=== PATIENT | male | born 2000 | race African-American/Black ===

== ENCOUNTER 2023-01-20 22:52 | Emergency (ER) | payer SELFPAY ==
--- NOTE | ~2023-01-20 | CT_ITS ---
EXAMINATION: CT abdomen pelvis w con INDICATION: Diffuse abdominal pain TECHNIQUE: Computed tomographic images of the abdomen and pelvis were obtained after the administrati on of 100 cc of Omnipaque 350 intravenous contrast. The dose-length product (DLP) was 205.61 mGy-cm. Automated exposure control and iterative reconstruction technique were employed. COMPARISON: None available FINDINGS: The lung bases are clear. The heart size is normal. The liver, spleen, pancreas, gallbladde r, and adrenal glands are normal. The kidneys are unremarkable. No pathologically enlarged abdominal or pelvic lymph nodes are identified. No free intraperitoneal gas or evidence of bowel obstruction. T he appendix is normal. IMPRESSION: 1. No CT correlate for the patient's symptoms. Reviewed, dictated and finalized at location F. ICIDE CONTROL INSPECTOR
[2023-01-20 23:03] VITALS: BP 123/58; PULSE 98; RESP 20; TEMP 37.6; O2SAT 100
[2023-01-20 23:24] LABS: Alanine Aminotransferase 22 U/L (6-50); Albumin Level 4.7 g/dL (3.5-5.1); Alkaline Phosphatase 74 U/L (38-126); Anion Gap 11 mmol/L (8-16); Aspartate Amino Transferase 35 U/L (17-59); Bilirubin,Total 0.8 mg/dL (0.2-1.3); Blood Urea Nitrogen 16 mg/dL (9-20); Calcium 9.9 mg/dL (8.4-10.2); Carbon Dioxide 26 mmol/L (22-30); Chloride 101 mmol/L (98-107); Estimated CRCL calculation 109 ml/min; Estimated Glomerular Filt Rate > 60; Glucose 105 mg/dL (65-110); Lipase 52 U/L (23-300); Potassium 3.5 mmol/L (3.4-5.0); Sodium 138 mmol/L (137-145)
[2023-01-20 23:52] LABS: Basophils Percent Auto 0.4 % (0.2-1.2); Eosinophils Absolute Auto 0.1 K/mm3 (0-0.3); Eosinophils Percent Auto 1.6 % (0-4.4); Hematocrit 43.5 % (42.0-52.0); Hemoglobin 13.9 g/dL (14.0-18.0); Immature Granulocyte Absolute 0.02 K/mm3 (0.00-0.031); Immature Granulocyte Percent A 0.2 % (0-0.5); Lymphocytes Absolute Auto 0.87 K/mm3 (0.9-3.2); Lymphocytes Percent Auto 9.8 % (18.3-44.2); Mean Corpuscular Hemoglobin 27.3 pg (26-34); Mean Corpuscular Volume 85.3 fl (80-100); Mean Platelet Volume 12.8 fl (7.4-10.4); Monocytes Absolute Auto 0.3 K/mm3 (0.1-0.6); Neutrophils Absolute Auto 7.6 K/mm3 (1.3-6.7); Platelet Count Result 184 k/mm3 (150-375); Red Cell Distribution Width 12.7 % (11.5-14.5); White Blood Count 8.9 K/mm3 (4.5-10.0)
[2023-01-21 05:58] VITALS: BP 121/68; PULSE 63; RESP 15; O2SAT 99
[2023-01-21 06:22] LABS: Appearance Urine Cloudy (Clear); Bacteria Urine None Seen /hpf; Bilirubin Urine Negative (Negative); Blood Urine Negative (Negative); Color Urine Yellow (Yellow); Glucose Urine UA Negative (Negative); Ketones Urine Negative (Negative); Leukocyte Esterase Ur 1+ LEU/UL (Negative); Nitrate Urine Negative (Negative); Non Pathogenic Casts 0-2; Protein Urine Negative (Negative); RBC Urine 0-2 /hpf (0-2); Specific Grav Ur 1.022 (1.001-1.035); Squamous Epithelial Cell Urine None seen /hpf (Few); WBC Urine 21-50 /hpf; pH Urine 7.5 (5.0-9.0)
[2023-01-21 06:27] LABS: Add Urine Microscopic? YES
[2023-01-21] MEDS: ONDANSETRON INJ 4 MG/2 ML VIAL IV PUSH (07:23)
[2023-01-21] MEDS: KETOROLAC 30 MG/ML VIAL (*BKC) IV PUSH (07:23)
[2023-01-21] MEDS: SODIUM CHLORIDE 0.9% IV 1,000 ML 999 ML IV CONT (07:23)
--- NOTE | 2023-01-21 07:45 | ED.ABDPAIN ---
HPI - Abdominal Pain General Chief Complaint: Abdominal Pain Stated Complaint: upper abd pain Time Seen by Provider: 01/21/23 07:07 Source: patient and RN notes reviewed Mode of arrival: ambulatory Limitations: no limitations History of Present Illness HPI narrative: This is a 23 year old male who presents for evaluation of abdominal pain. He states he developed diffuse abdominal pain 1 hour after eating last night. He reports pain has been constant. He had an episode of nausea and vomiting at onset of pain. He denies diarrhea or urinary complaints. He denies penile discharge or testicular swelling. He tried pepto without relief. Pertinent past history: none Onset (ago): hour(s) (8) Pain Consistency: constant Location: diffuse Relieving factors: nothing Related Data Allergies Allergy/AdvReac Type Severity Reaction Status Date / Time No Known Allergies Allergy Verified 01/21/23 06:32 Review of Systems Constitutional: Constitutional: Denies weakness Cardiovascular: Cardiovascular: Denies syncope, Denies rapid heart rate, Denies irregular heart rhythm, Denies leg edema and Denies dyspnea Respiratory: Respiratory: Denies chest congestion, Denies hemoptysis, Denies excessive phlegm production and Denies dyspnea Gastrointestinal: Gastrointestinal: Reports abdominal pain, Denies hematochezia, Denies diarrhea, Reports nausea and Reports vomiting Genitourinary: Genitourinary: Denies hematuria, Denies dysuria, Denies penile discharge and Denies testicular pain Musculoskeletal: Musculoskeletal: Denies joint swelling, Denies loss of height and Denies muscle weakness Neurologic: Denies syncope, Denies focal weakness and Denies weakness PMFSH Past Medical History Medical History (Updated 01/21/23 @ 08:57 by Patricia Day MD) Hernia Surgical History Surgical History (Updated 01/21/23 @ 07:46 by Patricia Day MD) No pertinent past surgical history Social History Social History (Updated 01/21/23 @ 07:46 by Patricia Day MD) Smoking status: Never smoker Exam Const: General: no acute distress and alert Nutritional Appearance: well nourished Orientation/consciousness: patient oriented x3 Limitations: no limitations HENMT: Head: normal to inspection Eyes: EOM: EOMs intact bilaterally Chest: Chest palpation & inspection: normal inspection of the chest Resp: Effort & Inspection: normal respiratory effort Auscultation: clear to auscultation bilaterally Cardio: Rate: regular rate Rhythm: regular rhythm Heart sounds: no murmurs GI: GI Palp: Yes Soft to palpation, Yes Tenderness to palpation present (GI) (diffuse), Yes Guarding due to palpation present (GI) (voluntary), No Rigid due to palpation and No Hernia present Auscultation: normal bowel sounds : General: Yes bladder normal to palpation Back/Spine/Pelvis: Back: no CVA tenderness Skin: General skin exam: normal color Rashes: no rashes Neuro: General: patient oriented x3, moves all extremities and CN's II-XI intact bilaterally Extrem: General: normal to inspection Psych: Mental Status: mental status grossly normal Affect: normal affect Attitude: cooperative Course Reevaluation(s) Reevaluation #1: I Discussed with patient that Ct is unremarkable. He will be discharged with antibiotics given abnormal UA Date: 01/21/23 Time: 08:54 Vital Signs Vital signs: Vital Signs Temperature 99.6 F 01/20/23 23:03 Pulse Rate 98 01/20/23 23:03 Respiratory Rate 20 01/20/23 23:03 Blood Pressure 123/58 L 01/20/23 23:03 Pulse Oximetry 100 01/20/23 23:03 Oxygen Delivery Room Air 01/20/23 23:03 Temperature 99.6 F 01/20/23 23:03 Pulse Rate 71 01/21/23 08:59 Respiratory Rate 14 01/21/23 08:59 Blood Pressure 133/89 01/21/23 08:59 Pulse Oximetry 100 01/21/23 08:59 Oxygen Delivery Room Air 01/20/23 23:03 MDM - Abdominal Pain MDM Narrative Medical decision making narrative: labs ordered, CT ab
[2023-01-21 08:59] VITALS: BP 133/89; PULSE 71; RESP 14; O2SAT 100
== END 2023-01-21 09:10 | disposition home or self-care (01) ==
PROVIDERS: Emergency Medicine; Emergency Provider General Practice
DX: R10.9 Unspecified abdominal pain (principal); R82.998 Other abnormal findings in urine
CPT/HCPCS: 36415; 74177; 80053; 81001; 83690; 85025; 87086; 96361; 96374; 96375; 99284; J1885; J2405; J7030; Q9967

== ENCOUNTER 2023-01-22 09:14 | Emergency (ER) | payer SELFPAY ==
[2023-01-22] VITALS (12 sets, daily range): BP systolic 107–143; BP diastolic 62–83; PULSE 68–93; RESP 16–27; TEMP 36.2; O2SAT 99–100
[2023-01-22 09:37] LABS: Basophils Percent Auto 0.9 % (0.2-1.2); Eosinophils Absolute Auto 0.3 K/mm3 (0-0.3); Eosinophils Percent Auto 8.8 % (0-4.4); Hematocrit 46.4 % (42.0-52.0); Hemoglobin 14.4 g/dL (14.0-18.0); Lymphocytes Absolute Auto 1.49 K/mm3 (0.9-3.2); Mean Corpuscular Hemoglobin 27.3 pg (26-34); Mean Platelet Volume 12.6 fl (7.4-10.4); Monocytes Absolute Auto 0.4 K/mm3 (0.1-0.6); Neutrophils Absolute Auto 1.1 K/mm3 (1.3-6.7); Neutrophils Percent Auto 33.3 % (45.5-73.1); Platelet Count Result 198 k/mm3 (150-375); Red Blood Count 5.27 M/mm3 (4.6-6.20); White Blood Count 3.4 K/mm3 (4.5-10.0)
[2023-01-22 09:48] LABS: Alanine Aminotransferase 46 U/L (6-50); Albumin Level 4.7 g/dL (3.5-5.1); Alkaline Phosphatase 70 U/L (38-126); Anion Gap 13 mmol/L (8-16); Aspartate Amino Transferase 40 U/L (17-59); Bilirubin,Total 0.7 mg/dL (0.2-1.3); Blood Urea Nitrogen 18 mg/dL (9-20); Calcium 10.2 mg/dL (8.4-10.2); Carbon Dioxide 20 mmol/L (22-30); Chloride 105 mmol/L (98-107); Estimated CRCL calculation 120 ml/min; Estimated Glomerular Filt Rate > 60; Glucose 99 mg/dL (65-110); Lipase 55 U/L (23-300); Potassium 4.1 mmol/L (3.4-5.0); Sodium 138 mmol/L (137-145)
[2023-01-22 10:12] LABS: Appearance Urine Cloudy (Clear); Bacteria Urine None Seen /hpf; Bilirubin Urine Negative (Negative); Blood Urine Negative (Negative); Color Urine Yellow (Yellow); Glucose Urine UA Negative (Negative); Ketones Urine 1+ mg/dL (Negative); Leukocyte Esterase Ur Negative LEU/UL (Negative); Nitrate Urine Negative (Negative); Non Pathogenic Casts 0-2; Protein Urine Negative (Negative); RBC Urine 0-2 /hpf (0-2); Specific Grav Ur 1.014 (1.001-1.035); Squamous Epithelial Cell Urine None seen /hpf (Few); WBC Urine 0-5 /hpf; pH Urine 7.5 (5.0-9.0)
[2023-01-22 10:14] LABS: Add Urine Microscopic? YES
[2023-01-22] MEDS: SODIUM CHLORIDE 0.9% IV 1,000 ML 999 ML IV CONT (10:21)
--- NOTE | 2023-01-22 10:23 | ECG_ITS ---
Measurements Intervals [place] Rate: 64 P: 41 PA: 143 QRS: 80 QRSD: 84 T: 72 QT: 362 QTc: 375 Interpretive Statements SINUS RHYTHM ST ELEVATION IN ANTEROLAT/INF LEADS, PROBABLY EARLY REPOLARIZATION BASELINE ARTIFACT- I, II, III BORDERLINE ECG NO PREVIOUS ECG AVAILABLE FOR COMPARISON Electronically Signed On 01-22-2023 11:21:17 HVAC SERVICE MANAGER by Az Dumont D.O.
--- NOTE | 2023-01-22 10:24 | ED.ABDPAIN ---
HPI - Abdominal Pain General Chief Complaint: Abdominal Pain Stated Complaint: abd pain, kidney issues Time Seen by Provider: 01/22/23 09:45 History of Present Illness HPI narrative: 23-year-old male presents to the emergency department after having a syncopal episode. Patient was evaluated in the emergency department over the weekend and was diagnosed with urinary tract infection. Patient was unable to fill his prescription for his antibiotics over the weekend but was going to fill them this morning. While patient was in the car he had onset increased abdominal pain and had a syncopal episode. Patient had no loss of bowel or bladder control. Patient's family was driving and pulled over and called EMS. By the time EMS arrived on scene the patient was alert and oriented. Patient states that he was having some abdominal pain but the abdominal pain has since improved. Patient is resting comfortably at this time. Patient denies any prior history of syncope denies any history of coronary artery disease. Related Data Allergies Allergy/AdvReac Type Severity Reaction Status Date / Time No Known Allergies Allergy Verified 01/22/23 09:22 Review of Systems Review of Systems: All systems reviewed & are unremarkable except as noted in HPI and below PMFSH Past Medical History Medical History (Updated 01/22/23 @ 12:51 by Rashid Hsu MD) Hernia Surgical History Surgical History (Updated 01/21/23 @ 07:46 by Patricia Day MD) No pertinent past surgical history Social History Social History (Updated 01/21/23 @ 07:46 by Patricia Day MD) Smoking status: Never smoker Exam Narrative: APPEARANCE: Well appearing, no pain, no distress, well-nourished. HEAD: normocephalic, atraumatic. EYES: PERRLA/EOMI, conjunctivae clear. NOSE: Normal no drainage EARS:TMS clear with good light reflex. THROAT: Pharynx clear, no exudate. NECK: Supple. No adenopathy, no masses. RESPIRATORY: Airway patent, respirations nonlabored. Clear to auscultation bilaterally, no rales, rhonchi, wheezing. CARDIOVASCULAR: Regular rate and rhythm without murmurs rubs or gallops. ABDOMINAL: Soft, nontender, nondistended, normal bowel sounds MUSCULOSKELETAL: Moves all extremities. Strength/ROM intact, No edema, No calf tenderness. NEURO: Alert. Cranial nerves II through XII intact. Grossly intact SKIN: Warm, dry. Normal Color Course Course Emergency Course: 23-year-old male presenting to the emergency department for evaluation after having a syncopal episode. Patient does feel improved with treatment in the emergency department. Patient is afebrile with no leukocytosis and a stable hemoglobin. No significant abnormalities on his CMP and UA shows no evidence of infection. EKG showed normal sinus rhythm with no ectopy. Patient and pallor of the results of the workup and patient was comfortable plan was discharge and close follow-up with his primary care physician. Patient states he is going to get the antibiotics filled for his urinary tract infection that was diagnosed previously. Vital Signs Vital signs: Vital Signs Temperature 97.2 F L 01/22/23 09:19 Pulse Rate 88 01/22/23 09:19 Respiratory Rate 20 01/22/23 09:19 Blood Pressure 128/62 01/22/23 09:19 Pulse Oximetry 100 01/22/23 09:19 Oxygen Delivery Room Air 01/22/23 09:19 Temperature 97.2 F L 01/22/23 09:19 Pulse Rate 81 01/22/23 12:58 Respiratory Rate 18 01/22/23 12:58 Blood Pressure 127/79 01/22/23 12:04 Pulse Oximetry 99 01/22/23 12:58 Oxygen Delivery Room Air 01/22/23 09:19 MDM - Abdominal Pain Differential Diagnosis Differential diagnosis: Likely other Lab Data Attestation: I reviewed the patient's lab results. 01/22/23 09:32 01/22/23 09:32 Labs: Lab Results 01/22/23 01/22/23 Range/Units 09:32 10:01 WBC 3.4 L (4.5-10.0) K/mm3 RBC 5.27 (4.6-6.20) M/mm3 Hgb 14.4 (14.0-18.0
== END 2023-01-22 13:00 | disposition home or self-care (01) ==
PROVIDERS: Emergency Provider Emergency Medicine
DX: R55 Syncope and collapse (principal); R10.9 Unspecified abdominal pain; N39.0 Urinary tract infection, site not specified; R94.31 Abnormal electrocardiogram [ECG] [EKG]
CPT/HCPCS: 36415; 80053; 81001; 83690; 85025; 93005; 96360; 96361; 99283; J7030

== ENCOUNTER 2024-07-30 11:04 | Emergency (ER) | payer OTHER, SELFPAY ==
--- NOTE | ~2024-07-30 | XR_ITS ---
XR chest 2V Ordering provider: Glenny Winslow PA-C History: 24 years Male with . cough . Comparison: None. FINDINGS: MEDIASTINUM: The cardiac silhouette is not enlarged. LUNGS: No infiltrates, effusions or pneumothorax. OTHER: No free air under the diaphragm. IMPRESSION: No acute cardiopulmonary pathology. Reviewed, dictated and finalized at location A.
--- NOTE | ~2024-07-30 | CT_ITS ---
EXAMINATION: CT abdomen pelvis w con DATE: 07/30/2024 13:57 INDICATION: Diffuse abdominal pain and back pain TECHNIQUE: Computed tomography (CT) of the abdomen and pelvis was performed with 100 mL Omnipaque-350 intravenous contrast. Automated exposure control and iterative reconstruction technique were employe d. The dose-length product was 210.96 mGy-cm. COMPARISON: 01/21/2023 FINDINGS: Lung bases are clear. Heart size is normal. No pericardial or pleural effusion. Liver, gallbladder, s pleen, pancreas, bilateral adrenal glands and kidneys are normal. Normal appendix. No abnormal bowel wall thickening or obstruction. Bladder is normal. No free intraperitoneal gas or fluid. No pathologi josé miguel enlarged abdominal or pelvic lymphadenopathy. Abdominal aorta is normal in caliber with no diss ection. Normal variant circumaortic left renal veins. Bones are unremarkable. IMPRESSION: 1. No acute intra-abdominal/pelvic process. Reviewed, dictated and finalized at location A.
--- OUTSIDE RECORDS SUMMARY | 2024-07-30 11:07 | XMS_ITS | Clinical Summary ---
Author Organization [facility] Address [address] [place] [address] Care Team Providers Care Machine Lacer Name Role Phone Stone Galeas MD Primary Care Provider [phone] Source Comments [facility],non-owned Affiliates and Associated Physician Practices is amultiple site organization consisting of ambulatory clinics and hospital sitesin [place], [place], [place] and [place]. This disclosure is being madepursuant to the Care Everywhere program and may not contain all information available regarding this patient. Last updated 17.[facility] Allergies No known active allergies Medications * Be aware that medications may not be up to date on this document. Alwaysverify current medications with the patient. predniSONE (DELTASONE) 50 MG tablet Take 50 mg by mouth once daily 1 Active lidocaine (HM LIDOCAINE PATCH) 4 % patch Apply 1 (one) patch to skin once daily 30 patch 3 1 Active acetaminophen (TYLENOL) 500 MG tablet Take 1 (one) tablet by mouth every 4 hours as needed for Fever or Pain Maximum allowable Acetaminophen amount = 4 Grams (4000 mg) / 24 hours. 45 tablet 3 1 Active ibuprofen (MOTRIN) 600 MG tablet Take 1 (one) tablet by mouth 3 times daily 270 tablet 4 1 Active Active Problems Problem Noted Date Diagnosed Date Unilateral inguinal hernia without obstruction o r gangrene 08/09/2020 Immunizations Immunization Administration Dates Next Due DTaP VACCINE IM (6wk-6yrs) 09/09/2004,01/02/2002 ,2001 HEP A PEDS 2 DOSE 01/02/2014,12/08/2004 HEP B VACCINE, PED/ADOL 09/09/2004,01/02/2002, HIB-HAEMOPHILUS INFLUENZAE B CONJUGATE VACCINE 09/09/2004,01/02/2002,2001 Human Papilloma Virus Ninevalent Vaccine 016,03/29/2015 PERLITA VACCINE QUAD LAIV4 PF NASAL 11/24/2014,2013 MENINGOCOCCAL ACWY (MCV4P) VAC IM 11/20/2018, MMR 09/09/2004 MMR/VARICELLA 01/02/2014 PNEUMOCOCCAL PCV7 CONJ, PEDS 09/09/2004,01/03/20 02,2001 POLIO IPV 01/02/2014,09/09/2004,2001 TDAP (7yrs+) 01/18/2021 VARICELLA 09/09/2004 iNFLUENZA VACCINE, RECOM-ALFARO, QUADR. (FLUBLOCK QUADRIVALENT; 18Y+) (RIV4) 01/18/2021 Family History Relation Name Status Comments Maternal Aunt Other hypertension, dm, breast cancer - of heart dz in 60s Mother Other hypertension Social History Tobacco Use Types Packs/Day Years Used Date Smoking Tobacco: Never Smokeless Tobacco: Never Alcohol Use Standard Drinks/Week Comments Never 0 (1 standard drink = 0.6 oz pur e alcohol) PHQ-2 Answer Date Recorded PHQ2 TOTAL SCORE 0 08/09/2020 Sex and Gender Information Value Date Recorded Sex Assigned at Not on file Legal Sex Male 8:28 AM CDT Gender Identity Not on file Sexual Orientation Not on file Last Filed Vital Signs Vital Sign Reading Time Taken Comments Blood Pressure 100/70 01/18/2021 2:04 PM LIMOUSINE RENTAL CLERK Pulse 100 01/18/2021 2:04 PM LIMOUSINE RENTAL CLERK Temperature 36.9 C (98.4 F) 08/09/2020 3:44 PM CDT Respiratory Rate 20 01/18/2021 2:04 PM LIMOUSINE RENTAL CLERK Oxygen Saturation 99% 01/18/2021 2:04 PM LIMOUSINE RENTAL CLERK Inhaled Oxygen Concentration - - Weight 64.4 kg (142 lb) 01/18/2021 2:04 PM LIMOUSINE RENTAL CLERK Height 170.2 cm (5' 7) 01/18/2021 2:04 PM LIMOUSINE RENTAL CLERK Body Mass Index 22.24 01/18/2021 2:04 PM LIMOUSINE RENTAL CLERK Plan of Treatment Health Maintenance Due Date Last Done Comments HIV SCREENING 01/10/2016 MENINGOCOCCAL (Group B) VACC INE SHARED DECISION-MAKING (1 of 2 - Standard) 2017 HEPATITIS C SCREENING 01/05/2019 COVID-19 VACCINE (1 - 2023-2 5 season) 2023 DEPRESSION SCREENING 02/27/2024 INFLUENZA VACCINE (Season Ended) 2024 01/18/2021, 11/24/2014, 01/02/2014 DTAP/TDAP/TD VACCINES (5 - T d or Tdap) 01/18/2031 01/18/2021, 09/09/2004, 01/02/2002, Additional history exists ZOSTER VACCINE (1 of 2) 2051 HEPATITIS B VACCINE Completed 09/09/2004, 01/02/2002, 2001 HIB VACCINE Completed 09/09/2004, 08/2001, 2001 PNEUMOCOCCAL VACCINE Completed 09/09/2004, 01/02/2002, 2001 HPV VACCINE Completed 12/29/2015, 03/29/2015 MENINGOCOCCAL GROUPS A/C/Y/W VACCINE Completed 11/20/2018, 11/24/2014 Care Teams Machine Lacer Relationship Specialty Start Date End Date Stone Galeas MD [address] [place] [address] PCP - General 08/03/20
[2024-07-30 11:22] VITALS: BP 122/89; PULSE 75; RESP 16; TEMP 36.3; O2SAT 99
--- OUTSIDE RECORDS SUMMARY | 2024-07-30 12:21 | XMS_ITS | Clinical Summary ---
Author Organization [facility] Address [address] [place] [address] Care Team Providers Care Nutritional Chemist Name Role Phone Stone Galeas MD Primary Care Provider [phone] Source Comments [facility],non-owned Affiliates and Associated Physician Practices is amultiple site organization consisting of ambulatory clinics and hospital sitesin [place], [place], [place] and [place]. This disclosure is being madepursuant to the Care Everywhere program and may not contain all information available regarding this patient. Last updated 17.[facility] Allergies No known active allergies Medications [...] Comments Blood Pressure 100/70 01/18/2021 2:04 PM BUILDING CONSTRUCTION INSPECTOR Pulse 100 01/18/2021 2:04 PM BUILDING CONSTRUCTION INSPECTOR Temperature 36.9 C (98.4 F) 08/09/2020 3:44 PM CDT Respiratory Rate 20 01/18/2021 2:04 PM BUILDING CONSTRUCTION INSPECTOR Oxygen Saturation 99% 01/18/2021 2:04 PM BUILDING CONSTRUCTION INSPECTOR Inhaled Oxygen Concentration - - Weight 64.4 kg (142 lb) 01/18/2021 2:04 PM BUILDING CONSTRUCTION INSPECTOR Height 170.2 cm (5' 7) 01/18/2021 2:04 PM BUILDING CONSTRUCTION INSPECTOR Body Mass Index 22.24 01/18/2021 2:04 PM BUILDING CONSTRUCTION INSPECTOR Plan of Treatment Health Maintenance Due Date [...] A/C/Y/W VACCINE Completed 11/20/2018, 11/24/2014 Care Teams Nutritional Chemist Relationship Specialty Start Date End Date Stone Galeas MD [address] [place] [address] PCP - General 08/03/20
--- NOTE | 2024-07-30 12:29 | ED_ITS ---
HPI - Back Pain/Injury General Chief Complaint: Back Pain/Injury Stated Complaint: bilateral flank pain 1.5 days Time Seen by Provider: 07/30/24 11:35 History of Present Illness HPI Narrative: 24-year-old male with no significant past medical history presents to the emergency department for diffuse back pain and abdominal pain for the past 2 days. Patient states 2 days ago he developed flu-like symptoms consisting of nausea, vomiting, diarrhea, chills, sweats, congestion, cough. Since then he has had diffuse pain to his lower back and abdomen. States the pain is back is worse with standing for long periods of time. Denies injury trauma, saddle anesthesia, bowel or bladder incontinence or urinary retention, fever. Denies dysuria, hematuria, history of kidney stones. No prior abdominal surgeries. Related Data Allergies Allergy/AdvReac Type Severity Reaction Status Date / Time No Known Allergies Allergy Verified 07/30/24 11:30 Review of Systems 2 Review of Systems: All systems reviewed & are unremarkable except as noted in HPI and below PMFSH Past Medical History Medical History Hernia Surgical History Surgical History No pertinent past surgical history Social History Social History Smoking status: Never smoker Exam 2 Narrative: GENERAL: Well-appearing, well-nourished, and in no acute distress. HEAD: Normocephalic, atraumatic. EYES: PERRLA and EOMI. ENT: Nares clear, no rhinorrhea or epistaxis. Mucous membranes moist. NECK: Supple. CHEST: Clear to auscultation. No respiratory distress. HEART: Regular rate and rhythm. No murmur heard. Normal peripheral pulses. ABDOMEN: Normoactive bowel sounds. Abdomen soft with diffuse mild tenderness. No rebound or rigidity. BACK: Diffuse tenderness lumbar spine, paraspinous muscles and CVA regions bilaterally with no overlying skin changes. EXTREMITIES: Normal range of motion. No edema. SKIN: Warm, dry, no rash. NEURO: No focal deficits. Alert and oriented x3. No saddle anesthesia. BLE strength 5/5 Course Vital Signs Vital signs: Vital Signs Temperature 97.4 F L 07/30/24 11:22 Pulse Rate 75 07/30/24 11:22 Respiratory Rate 16 07/30/24 11:22 Blood Pressure 122/89 07/30/24 11:22 Pulse Oximetry 99 07/30/24 11:22 Oxygen Delivery Room Air 07/30/24 11:22 Temperature 97.4 F L 07/30/24 11:22 Pulse Rate 75 07/30/24 11:22 Respiratory Rate 16 07/30/24 11:22 Blood Pressure 122/89 07/30/24 11:22 Pulse Oximetry 99 07/30/24 11:22 Oxygen Delivery Room Air 07/30/24 11:22 MDM - Back Pain/Injury MDM Narrative Medical decision making narrative: 24-year-old male presents emergency department for 2 days of diffuse back pain and abdominal pain. States symptoms started with viral symptoms 2 days ago which consisted of N/V/D, body aches, chills, congestion. Triage vitals are stable. Patient is afebrile and nontoxic appearing. Exam is notable for the above. CBC with leukopenia of 2.9, normal hemoglobin RBCs, normal platelets. Chemistries with mildly elevated BUN of 23, otherwise unremarkable. Lipase normal. UA with 1+ ketones, no UTI. Viral swabs are negative. Chest x-ray shows no acute cardiopulmonary findings. CT abdomen pelvis shows no acute intra-abdominal or pelvic findings. Patient updated on results. She received IV fluids, Toradol, Pepcid and Zofran with significant improvement in symptoms. Suspect viral syndrome. Advised to have his labs redrawn by his PCP in couple weeks to ensure with leukopenia has improved, although this is likely secondary to current viral illness. Will send Tylenol, ibuprofen and Zofran to the pharmacy for symptomatic control. Discussed strict ED return precautions. He is agreeable with the plan verbalized understanding. Discharged in stable condition. Lab Data 07/30/24 12:45 07/30/24 12:45 Labs: Lab Results 07/30/24 Range/Units 12:45 WBC 2.9 L (4.5-10.0) K/mm3 RBC 5.32 (4.6-6.20) M/mm3 Hgb 14.4 (14.0-18.0) g/dL Hct 46.3 (42.0-52.0) % MCV 87.0 (80-100) fl MCH 27.1 (26-34) pg MCHC 31.1 L (32-36) g/dl RDW 12.8 (11.5-14.5) % Plt Count 189 (150-375) k/mm3 MPV 11.5 H (7.4-10.4) fl Immature Gran % (Auto) 0.3 (0-0.5) % Neut % (Auto) 16.9 L (45.5-73.1) % Lymph % (Auto) 46.6 H (18.3-44.2) % [place] % (Auto) 25.5 H (2.6-8.5) % Eos % (Auto) 9.7 H (0-4.4) % Baso % (Auto) 1.0 (0.2-1.2) % Lymph # (Auto) 1.35 (0.9-3.2) K/mm3 [place] # (Auto) 0.7 H (0.1-0.6) K/mm3 Eos # (Auto) 0.3 (0-0.3) K/mm3 Baso # (Auto) 0.0 (0.0-0.1) K/mm3 Abs Immat Gran (auto) 0.01 (0.00-0.031) K/mm3 Absolute Neuts (auto) 0.5 L (1.3-6.7) K/mm3 Absolute Nucleated RBC 0.000 (0.0-0.012) K/mm3 Nucleated RBC % 0.0 (0.0-0.2) % Sodium 139 (137-145) mmol/L Potassium 4.3 (3.4-5.0) mmol/L Chloride 103 (98-107) mmol/L Carbon Dioxide 28 (22-30) mmol/L Anion Gap 8 (4-12) mmol/L BUN 23 H (9-20) mg/dL Creatinine 1.02 (0.7-1.3) mg/dL Estim Creat Clear Calc 84 ml/min Estimated GFR > 60 (59 - ) Glucose 100 (65-110) mg/dL Calcium 9.6 (8.4-10.2) mg/dL Total Bilirubin 0.4 (0.2-1.3) mg/dL AST 26 (17-59) U/L ALT 14 (6-50) U/L Alkaline Phosphatase 51 (38-126) U/L Total Protein 8.2 (6.3-8.2) g/dL Albumin 4.7 (3.5-5.1) g/dL Lipase 63 (23-300) U/L Urine Color Yellow (Yellow) Urine Appearance Clear (Clear) Urine pH 6.0 (5.0-9.0) Ur Specific [place] 1.029 (1.001-1.035) Urine Protein Negative (Negative) mg/dL Urine Glucose (UA) Negative (Negative) mg/dL Urine Ketones 1+ H (Negative) mg/dL Ur Blood (Man) Negative (Negative) Urine Nitrate Negative (Negative) Urine Bilirubin Negative (Negative) Urine Urobilinogen 0.2 (<2.0) mg/dL Leukocyte Esterase Rfl Negative (Negative) SONIDO/UL Influenza A (RT-PCR) Negative (Negative) Influenza B (RT-PCR) Negative (Negative) RSV (RT-PCR) Negative (Negative) SARS-CoV-2 RNA (RT-PCR) Negative (Negative) Discharge Plan Discharge Clinical Impression: Acute viral syndrome, Leukopenia Patient Disposition: Home Condition: Stable Instructions: Antibiotic Form, Viral Syndrome (ED) Additional Instructions: Please drink plenty of fluids. Take Tylenol ibuprofen as needed for body aches and pain, ondansetron as needed for nausea vomiting. Follow-up with primary care provider referred you to. You may need your labs redrawn in the next few weeks to ensure your white blood cell count is increased as it was low today, however this is likely due to the viral illness. Return to the emergency department if you develop any new or worsening symptoms, you are unable to tolerate food or fluids, or other concerning symptoms. Patient Language: Stateless Prescriptions: New ibuprofen 800 mg tablet 800 mg PO TID PRN (Reason: pain) Qty: 20 0RF acetaminophen 500 mg capsule 500 mg PO Q6H PRN (Reason: pain) Qty: 14 0RF ondansetron 4 mg tablet,disintegrating 4 mg PO Q8H Qty: 14 0RF No Action ondansetron 4 mg tablet,disintegrating 4 mg PO Q6H PRN (Reason: nausea and vomiting) Qty: 14 0RF famotidine [Pepcid] 20 mg tablet 20 mg PO DAILY Qty: 14 0RF cephalexin 500 mg capsule 500 mg PO Q8H Qty: 21 0RF Follow-up/Referrals: Femi Anna MD [Physician] - UNKNOWN,DOCTOR [Primary Care Provider] -
[2024-07-30] MEDS: KETOROLAC 15 MG/ML VIAL (*BKC) IV PUSH (12:47)
[2024-07-30] MEDS: SODIUM CHLORIDE 0.9% IV 1,000 ML 999 ML IV CONT (12:47)
[2024-07-30] MEDS: FAMOTIDINE 20 MG/2 ML VIAL IV PUSH (12:48)
[2024-07-30] MEDS: ONDANSETRON INJ 4 MG/2 ML VIAL IV PUSH (12:48)
[2024-07-30 12:56] LABS: Eosinophils Absolute Auto 0.3 K/mm3 (0-0.3); Eosinophils Percent Auto 9.7 % (0-4.4); Hematocrit 46.3 % (42.0-52.0); Hemoglobin 14.4 g/dL (14.0-18.0); Immature Granulocyte Absolute 0.01 K/mm3 (0.00-0.031); Immature Granulocyte Percent A 0.3 % (0-0.5); Lymphocytes Absolute Auto 1.35 K/mm3 (0.9-3.2); Lymphocytes Percent Auto 46.6 % (18.3-44.2); Mean Corpuscular HGB Conc 31.1 g/dl (32-36); Mean Corpuscular Hemoglobin 27.1 pg (26-34); Mean Platelet Volume 11.5 fl (7.4-10.4); Monocytes Absolute Auto 0.7 K/mm3 (0.1-0.6); Monocytes Percent Auto 25.5 % (2.6-8.5); Neutrophils Absolute Auto 0.5 K/mm3 (1.3-6.7); Neutrophils Percent Auto 16.9 % (45.5-73.1); Platelet Count Result 189 k/mm3 (150-375); Red Blood Count 5.32 M/mm3 (4.6-6.20); Red Cell Distribution Width 12.8 % (11.5-14.5); White Blood Count 2.9 K/mm3 (4.5-10.0)
[2024-07-30 12:58] LABS: Add Urine Microscopic? NO; Appearance Urine Clear (Clear); Bilirubin Urine Negative (Negative); Blood Urine Negative (Negative); Color Urine Yellow (Yellow); Glucose Urine UA Negative (Negative); Ketones Urine 1+ mg/dL (Negative); Leukocyte Esterase Ur Negative LEU/UL (Negative); Nitrate Urine Negative (Negative); Protein Urine Negative (Negative); Specific Grav Ur 1.029 (1.001-1.035); Urobilinogen Urine 0.2 mg/dL (<2.0)
[2024-07-30 13:06] LABS: Alanine Aminotransferase 14 U/L (6-50); Albumin Level 4.7 g/dL (3.5-5.1); Alkaline Phosphatase 51 U/L (38-126); Anion Gap 8 mmol/L (4-12); Aspartate Amino Transferase 26 U/L (17-59); Bilirubin,Total 0.4 mg/dL (0.2-1.3); Blood Urea Nitrogen 23 mg/dL (9-20); Calcium 9.6 mg/dL (8.4-10.2); Carbon Dioxide 28 mmol/L (22-30); Chloride 103 mmol/L (98-107); Estimated CRCL calculation 84 ml/min; Estimated Glomerular Filt Rate > 60; Glucose 100 mg/dL (65-110); Lipase 63 U/L (23-300); Potassium 4.3 mmol/L (3.4-5.0); Sodium 139 mmol/L (137-145); Total Protein 8.2 g/dL (6.3-8.2)
[2024-07-30 13:41] LABS: Influenza A QL RT-PCR Negative (Negative); Influenza B QL RT-PCR Negative (Negative); RSV RNA, RT-PCR Negative (Negative); SARS-CoV-2 RNA PCR Negative (Negative)
[2024-07-30 16:02] VITALS: BP 110/65; PULSE 62; RESP 16; O2SAT 97
== END 2024-07-30 16:03 | disposition home or self-care (01) ==
PROVIDERS: Emergency Provider Physician Assistant
DX: B34.9 Viral infection, unspecified (principal); D72.819 Decreased white blood cell count, unspecified; Z20.822 Contact with and (suspected) exposure to COVID-19
CPT/HCPCS: 36415; 71046; 74177; 80053; 81003; 83690; 85025; 87637; 96361; 96374; 96375; 99284; J1885; J2405; J7030; Q9967

== ENCOUNTER 2024-12-29 05:37 | Emergency (ER) | payer OTHER, SELFPAY ==
[2024-12-29] VITALS (8 sets, daily range): BP systolic 114–129; BP diastolic 75–89; PULSE 66–87; RESP 17–20; TEMP 36.6; O2SAT 97–100
--- NOTE | ~2024-12-29 | CT_ITS ---
CT HEAD NON-CONTRAST Clinical History: syncope Comparison: None Technique: Unenhanced axial images skull base to vertex Coronal, sagittal reformats CT images acquired with automatic exposure control for dose reduction DLP: 681 mGy-cm Findings: Sulci, ventricles: Unremarkable. No intracerebral hemorrhage. No evidence acute territorial infarct. No mass effect, midline shift. Bony calvarium intact. Visualized paranasal sinuses: Clear. Mastoid air cells: Clear. IMPRESSION: 1. No acute intracranial findings. Reviewed, dictated and finalized at location R. GROOMER
--- NOTE | ~2024-12-29 | XR_ITS ---
Examination: XR chest 1V Clinical History: syncope Comparison: 07/30/2024 Technique: Portable AP Findings: Heart size normal. Lungs clear. No acute bony abnormality. IMPRESSION: 1. No acute cardiopulmonary findings given portable technique. Reviewed, dictated and finalized at location R. NESS OBJECTS CONSULTANT
--- NOTE | 2024-12-29 05:51 | ECG_ITS ---
Test Date: 2024-12-29 06:13:27 Measurements Intervals [place] Rate: 71 P: 11 NE: 139 QRS: 76 QRSD: 80 T: 66 QT: 342 QTc: 373 Interpretive Statements SINUS RHYTHM EARLY REPOLARIZATION [ST ELEVATION WITH NORMALLY INFLECTED T-WAVE] No previous ECG available for comparison Electronically Signed On 12-29-2024 09:39:54 BARREL COOPER by Main Sal M.D.
[2024-12-29 06:05] LABS: Hematocrit 40.5 % (42.0-52.0); Hemoglobin 12.5 g/dL (14.0-18.0); Immature Granulocyte Percent A 0.3 % (0-0.5); Lymphocytes Absolute Auto 1.01 K/mm3 (0.9-3.2); Mean Corpuscular HGB Conc 30.9 g/dl (32-36); Mean Corpuscular Hemoglobin 26.9 pg (26-34); Mean Corpuscular Volume 87.1 fl (80-100); Nucleated Red Blood Cells Absolute Auto 0.000 K/mm3 (0.0-0.012); Nucleated Red Blood Cells Perc 0.0 % (0.0-0.2); Platelet Count Result 187 k/mm3 (150-375); Red Blood Count 4.65 M/mm3 (4.6-6.20); White Blood Count 3.8 K/mm3 (4.5-10.0)
[2024-12-29 06:10] LABS: Fractional Inspired Oxygen 21 %; HCO3 VBG 24.0 mEq/l (24.0-30.0); PCO2 VBG 46.8 mmHg (42.0-48.0); pH VBG 7.328 (7.300-7.400)
[2024-12-29] MEDS: LACTATED RINGERS 1,000 ML 999 ML IV CONT (06:17)
[2024-12-29 06:21] LABS: Alanine Aminotransferase 15 U/L (6-50); Albumin Level 4.2 g/dL (3.5-5.1); Alkaline Phosphatase 55 U/L (38-126); Anion Gap 7 mmol/L (4-12); Aspartate Amino Transferase 26 U/L (17-59); Bilirubin,Total 0.4 mg/dL (0.2-1.3); Blood Urea Nitrogen 22 mg/dL (9-20); Calcium 8.9 mg/dL (8.4-10.2); Carbon Dioxide 26 mmol/L (22-30); Chloride 100 mmol/L (98-107); Estimated CRCL calculation 103 ml/min; Estimated Glomerular Filt Rate > 60; Glucose 191 mg/dL (65-110); Potassium 4.4 mmol/L (3.4-5.0); Sodium 133 mmol/L (137-145); Total Protein 6.9 g/dL (6.3-8.2)
[2024-12-29 06:27] LABS: PO2 VBG < 27.0 mmHg (35.0-45.0)
[2024-12-29 06:28] LABS: Troponin I 0.014 ng/mL (0.000-0.034)
--- NOTE | 2024-12-29 06:34 | PC.NURSE ---
Per pt girlfriend- pt was having an increasingly painful headache. Pt then started shaking and began hyperventilating. Pt then stopped breathing for a couple seconds. Pt girlfriend then states she started compressions and rescue breaths for a few seconds. Then compressions were stopped and EMS arrived and stated that pt was shaking and was only responsive to painful stimuli. Blood Sugar was checked by EMS and result was low. D10 was stated and pt received 100 mL and became A & O x4 in route. Pt reports the same thing happened a year ago when he was having bad abd pain. Pt in room only c/o headache.
[2024-12-29 06:57] LABS: Cannabinoid Screen Urine Positive (Negative)
--- NOTE | 2024-12-29 07:13 | ED.SEIZURE ---
HPI - Seizure General Chief Complaint: Seizure Stated Complaint: headache Time Seen by Provider: 12/29/24 06:59 History of Present Illness HPI Narrative: Per girlfriend, patient was reporting headache (had diagnosed migraines) and took a sumatriptan this morning, it didn't help, then he started complaining of increasing pain, she tried giving him some cold water, then states he started having seizure-like activity; he seemed to be shaking or trembling all over and was not responding, this episode lasted for quite a while, she wanted to call EMS, patient at 1st did not want her to call EMS but when the episodes did not stop, she called EMS. Had a similar episode a while back when he had severe abdominal pain, then started having shakes, presumed diagnosis is that severe pain causes him to have these seizure-like episodes. Related Data Allergies Allergy/AdvReac Type Severity Reaction Status Date / Time No Known Allergies Allergy Verified 12/29/24 05:49 Review of Systems Review of Systems: All systems reviewed & are unremarkable except as noted in HPI and below PMFSH Past Medical History Medical History (Updated 12/29/24 @ 07:40 by Marianne Mario MD) Hernia inquinal Surgical History Surgical History No pertinent past surgical history Family History Family History Mother Hypertension Father Hypertension Social History Social History Smoking status: Never smoker Alcohol intake: never Substance use: never Do You Feel Safe in your Home?: Yes Lack of Transportation: YES Lack of Food: Never True Current Housing: I Have Housing Concerned About Future Housing: No Difficulty Paying Gas/Electric Bills: No Difficulty Paying for Meds: YES Education: High School Diploma/GED Difficulty w/ Childcare or Family Care: No Living arrangements: with family Spiritual care concerns: No Agree to blood products: Yes Exam Narrative: EXAMINATION OF ORGAN SYSTEMS/BODY AREAS: Constitutional: Vital signs per nursing GENERAL: [No acute distress, non-toxic appearing.] HEAD: Normal with no signs of head trauma. EYES: EOMI, conjunctiva normal, PERRL ENT: Hearing grossly intact LUNGS: Nonlabored breathing. HEART: [Regular rate and rhythm] ABD: [Soft], [nontender to palpation] EXT: Normal range of motion SKIN: [No rashes or lesions.] NEURO: [Alert and oriented x 3. No gross focal sensory or strength deficits.] Speaking clear speech, ambulating with normal steady PSYCH: Normal affect Course Vital Signs Vital signs: Vital Signs Temperature 97.9 F 12/29/24 05:36 Pulse Rate 68 12/29/24 05:36 Respiratory Rate 17 12/29/24 05:36 Blood Pressure 123/78 12/29/24 05:36 Pulse Oximetry 100 12/29/24 05:36 Oxygen Delivery Room Air 12/29/24 05:36 Temperature 97.9 F 12/29/24 05:53 Pulse Rate 72 12/29/24 08:42 Respiratory Rate 17 12/29/24 08:42 Blood Pressure 114/80 12/29/24 08:42 Pulse Oximetry 100 12/29/24 08:42 Oxygen Delivery Room Air 12/29/24 06:23 MDM - Seizure MDM Narrative Medical decision making narrative: 24-year-old male presents with seizure-like episode, started after having a bad migraine for last few days, which did not get better after taking sumatriptan at home. Is awaiting follow-up with a neurologist, has MRI scheduled outpatient also. Blood sugar apparently at home tested by EMS was apparently undetectable, though he has no history of diabetes and he has been eating normally at home including last night. Has been stable here, well-appearing in no distress, though he does state that he still has a bit a headache, so he is treated for this with improvement. I did call and speak with our neurologist on-call, who recommended obtaining an EEG today if possible so that he can follow up with him outpatient. Does feels patient can likely be discharged and I agree, discussed with patient and girlfriend at bedside who are also in agreement with this plan with strict return precautions. Repeat blood sugar after 2 hours here remained stable, we did speak with EEG services and they will arrange to have an EEG for him done today outpatient. Strict return precautions discussed and patient and girlfriend agreeable. Lab Data 12/29/24 05:57 12/29/24 05:57 Labs: Lab Results 12/29/24 12/29/24 12/29/24 Range/Units 05:40 05:57 05:57 WBC 3.8 L (4.5-10.0) K/mm3 RBC 4.65 (4.6-6.20) M/mm3 Hgb 12.5 L (14.0-18.0) g/dL Hct 40.5 L (42.0-52.0) % MCV 87.1 (80-100) fl MCH 26.9 (26-34) pg MCHC 30.9 L (32-36) g/dl RDW 12.7 (11.5-14.5) % Plt Count 187 (150-375) k/mm3 MPV 12.1 H (7.4-10.4) fl Immature Gran % (Auto) 0.3 (0-0.5) % Neut % (Auto) 50.3 (45.5-73.1) % Lymph % (Auto) 26.7 (18.3-44.2) % [place] % (Auto) 9.5 H (2.6-8.5) % Eos % (Auto) 12.4 H (0-4.4) % Baso % (Auto) 0.8 (0.2-1.2) % Lymph # (Auto) 1.01 (0.9-3.2) K/mm3 [place] # (Auto) 0.4 (0.1-0.6) K/mm3 Eos # (Auto) 0.5 H (0-0.3) K/mm3 Baso # (Auto) 0.0 (0.0-0.1) K/mm3 Abs Immat Gran (auto) 0.01 (0.00-0.031) K/mm3 Absolute Neuts (auto) 1.9 (1.3-6.7) K/mm3 Absolute Nucleated RBC 0.000 (0.0-0.012) K/mm3 Nucleated RBC % 0.0 (0.0-0.2) % Sodium 133 L (137-145) mmol/L Potassium 4.4 (3.4-5.0) mmol/L Chloride 100 (98-107) mmol/L Carbon Dioxide 26 (22-30) mmol/L Anion Gap 7 (4-12) mmol/L BUN 22 H (9-20) mg/dL Creatinine 0.95 (0.7-1.3) mg/dL Estim Creat Clear Calc 103 ml/min Estimated GFR > 60 (59 - ) Glucose 191 H (65-110) mg/dL POC Capillary Glucose 236 H (65-105) mg/dl Lactic Acid 2.3 H (0.7-2.0) mmol/L Calcium 8.9 (8.4-10.2) mg/dL Total Bilirubin 0.4 (0.2-1.3) mg/dL AST 26 (17-59) U/L ALT 15 (6-50) U/L Alkaline Phosphatase 55 (38-126) U/L Troponin I 0.014 Cancelled (0.000-0.034) ng/mL Total Protein 6.9 (6.3-8.2) g/dL Albumin 4.2 (3.5-5.1) g/dL Urine Opiates Screen (Negative) Urine Methadone Screen (Negative) Ur Barbiturates Screen (Negative) Ur Phencyclidine Scrn (Negative) Ur Amphetamine Screen (Negative) U Benzodiazepines Scrn (Negative) Urine Cocaine Screen (Negative) U Cannabinoids Screen (Negative) Ethyl Alcohol < 10 (<10) mg/dL 12/29/24 12/29/24 12/29/24 Range/Units 06:28 07:43 08:29 WBC (4.5-10.0) K/mm3 RBC (4.6-6.20) M/mm3 Hgb (14.0-18.0) g/dL Hct (42.0-52.0) % MCV (80-100) fl MCH (26-34) pg MCHC (32-36) g/dl RDW (11.5-14.5) % Plt Count (150-375) k/mm3 MPV (7.4-10.4) fl Immature Gran % (Auto) (0-0.5) % Neut % (Auto) (45.5-73.1) % Lymph % (Auto) (18.3-44.2) % [place] % (Auto) (2.6-8.5) % Eos % (Auto) (0-4.4) % Baso % (Auto) (0.2-1.2) % Lymph # (Auto) (0.9-3.2) K/mm3 [place] # (Auto) (0.1-0.6) K/mm3 Eos # (Auto) (0-0.3) K/mm3 Baso # (Auto) (0.0-0.1) K/mm3 Abs Immat Gran (auto) (0.00-0.031) K/mm3 Absolute Neuts (auto) (1.3-6.7) K/mm3 Absolute Nucleated RBC (0.0-0.012) K/mm3 Nucleated RBC % (0.0-0.2) % Sodium (137-145) mmol/L Potassium (3.4-5.0) mmol/L Chloride (98-107) mmol/L Carbon Dioxide (22-30) mmol/L Anion Gap (4-12) mmol/L BUN (9-20) mg/dL Creatinine (0.7-1.3) mg/dL Estim Creat Clear Calc ml/min Estimated GFR (59 - ) Glucose (65-110) mg/dL POC Capillary Glucose 120 H (65-105) mg/dl Lactic Acid 1.2 (0.7-2.0) mmol/L Calcium (8.4-10.2) mg/dL Total Bilirubin (0.2-1.3) mg/dL AST (17-59) U/L ALT (6-50) U/L Alkaline Phosphatase (38-126) U/L Troponin I (0.000-0.034) ng/mL Total Protein (6.3-8.2) g/dL Albumin (3.5-5.1) g/dL Urine Opiates Screen Negative (Negative) Urine Methadone Screen Negative (Negative) Ur Barbiturates Screen Negative (Negative) Ur Phencyclidine Scrn Negative (Negative) Ur Amphetamine Screen Negative (Negative) U Benzodiazepines Scrn Negative (Negative) Urine Cocaine Screen Negative (Negative) U Cannabinoids Screen Positive A (Negative) Ethyl Alcohol (<10) mg/dL ABG Data ABG results: 12/29/24 05:57 VBG pH 7.328 VBG pCO2 46.8 VBG pO2 < 27.0 L VBG HCO3 24.0 O2 Delivery Device Room air O2 Liters/Min Not Reportable FiO2 21 Discharge Plan Discharge Clinical Impression: Seizure due to hypoglycemia Patient Disposition: Home Condition: Stable Instructions: Non-diabetic Hypoglycemia (ED), Generalized Tonic Clonic Seizures (ED) Additional Instructions: Call Elidia at Dr Valera's office to set up EEG testing today. ([phone]) Order placed as an outpatient and results go to Dr Valera (he is the neurologist). You will need to [place] at front entrance of [facility] (entrance 1). First door to the left as soon as you walk into the front doors. Please follow up with your PCP and Dr Valera the neurologist (brain specialist). Make sure you are eating and drinking enough. If your symptoms return or worsen, please return to the emergency room. Patient Language: Greenlandic Prescriptions: No Action ondansetron 4 mg tablet,disintegrating 4 mg PO Q8H PRN (Reason: nausea and vomiting) Qty: 14 1RF sumatriptan succinate 50 mg tablet See Rx Instructions PO .COMPLEX Qty: 30 1RF Rx Instructions: take 1 tab at onset of headache; if no relief may repeat 1 tab after at least 2 hrs; max = 4 tabs/24 hr PO Debrox 6.5 % drops 10 drp LEFT EAR Q12H PRN (Reason: ear wax) 4 Days Qty: 15 1RF Follow-up/Referrals: Matias Valera MD [Physician, Neurology] - 2 Days Maggie Burrell APRN [Primary Care Provider, Internal Medicine] - 2 Days
--- NOTE | 2024-12-29 07:44 | PC.NURSE ---
Pt blood glucose 120 at this time.
[2024-12-29] MEDS: KETOROLAC 15 MG/ML VIAL (*BKC) IV PUSH (08:24)
[2024-12-29] MEDS: dexAMETHasone SOD PHOS INJ 10 MG/ML 1 ML VIAL IV PUSH (08:24)
[2024-12-29] MEDS: METOCLOPRAMIDE HCL INJ 10 MG/2 ML VIAL IV PUSH (08:25)
== END 2024-12-29 08:43 | disposition home or self-care (01) ==
PROVIDERS: Student in an Organized Health Care Education/Training Program; Emergency Provider Emergency Medicine; PCP Nurse Practitioner Family
DX: G40.89 Other seizures (principal); E16.2 Hypoglycemia, unspecified
CPT/HCPCS: 36415; 70450; 71045; 80053; 80307; 82077; 82803; 82948; 83605; 84484; 85025; 93005; 96361; 96374; 96375; 99284; J1100; J1200; J1885; J2765; J7120

== ENCOUNTER 2024-12-29 10:03 | Outpatient (CLI) | payer OTHER, SELFPAY ==
--- OUTSIDE RECORDS SUMMARY | 2024-12-29 10:58 | XMS_ITS | Clinical Summary ---
Author Organization [facility] Address [address] [place] [address] Care Team Providers Care Salesperson Jewelry Name Role Phone Stone Galeas MD Primary Care Provider [phone] Source Comments [facility],non-owned Affiliates and Associated Physician Practices is amultiple site organization consisting of ambulatory clinics and hospital sitesin [place], [place], [place] and [place]. This disclosure is being madepursuant to the Care Everywhere program and may not contain all information available regarding this patient. Last updated 17.[facility] Allergies No known active allergies Medications * [...] Comments Blood Pressure 100/70 01/18/2021 2:04 PM CERTIFIED PROSTHETIST VICE PRESIDENT Pulse 100 01/18/2021 2:04 PM CERTIFIED PROSTHETIST VICE PRESIDENT Temperature 36.9 C (98.4 F) 08/09/2020 3:44 PM CDT Respiratory Rate 20 01/18/2021 2:04 PM CERTIFIED PROSTHETIST VICE PRESIDENT Oxygen Saturation 99% 01/18/2021 2:04 PM CERTIFIED PROSTHETIST VICE PRESIDENT Inhaled Oxygen Concentration - - Weight 64.4 kg (142 lb) 01/18/2021 2:04 PM CERTIFIED PROSTHETIST VICE PRESIDENT Height 170.2 cm (5' 7) 01/18/2021 2:04 PM CERTIFIED PROSTHETIST VICE PRESIDENT Body Mass Index 22.24 01/18/2021 2:04 PM CERTIFIED PROSTHETIST VICE PRESIDENT Plan of Treatment Health Maintenance Due Date Last Done Comments HIV SCREENING 01/10/2016 MENINGOCOCCAL (Group B) VACC INE SHARED DECISION-MAKING (1 of 2 - Standard) 2017 HEPATITIS C SCREENING 01/05/2019 DEPRESSION SCREENING 02/27/2024 COVID-19 VACCINE ( - 2023-2 5 season) 2024 INFLUENZA VACCINE (#1) 2024 , 11/24/2014, 01/02/2014 DTAP/TDAP/TD VACCINES (5 - T d or Tdap) 01/18/2031 01/18/2021, 09/09/2004, 01/02/2002, Additional history exists ZOSTER VACCINE (1 of 2) 2051 HEPATITIS B VACCINE Completed 09/09/2004, 01/02/2002, 2001 HIB VACCINE Completed 09/09/2004, 08/2001, 2001 PNEUMOCOCCAL VACCINE Completed 09/09/2004, 01/02/2002, 2001 HPV VACCINE Completed 12/29/2015, 03/29/2015 MENINGOCOCCAL GROUPS A/C/Y/W VACCINE Completed 11/20/2018, 11/24/2014 Care Teams Salesperson Jewelry Relationship Specialty Start Date End Date Stone Galeas MD [address] [place] [address] PCP - General 08/03/20
--- NOTE | 2024-12-30 11:36 | P.NEURO_ITS ---
Neurology EEG Report General Information Date of Study: 12/29/24 TEST eeg DIAGNOSIS Unspecified convulsions CONDITION OF RECORDING awake, drowsy and asleep EEG NUMBER [id number] CLINICAL HISTORY 24 years old male who woke up at 5:30 a.m. on 12/29 with a painful headaches. Patient has started getting B's headaches at the beginning of 2024 and takes a non abutting medication for it. When he took his medication, it made it worse. His girlfriend stated that he was in so much pain he went into shock and became unresponsive for 3 to 5 minutes. When EMS arrived, patient was only shaking his head yes and no to the questions, but he Does not remember this. patient blood sugar was at 22. Girlfriend said he had eaten dinner and then at some [employer] noodles before going to bed. Patient stated that he still has headache in the back of his head, the lights are making it worse, he has exhausted and his stomach hurts. Patient blood sugar was low a year ago after abdominal pain where he became unresponsive as well. 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 EEG DESCRIPTION Background rhythm consists of low-voltage 15 to 18 hertz per 2nd beta admixed with intermittent 2 to 3 hertz per 2nd delta activity hyperventilation produced normal and symmetrical buildup. Bilateral symmetrical sleep activity is noted with symmetrical sleep spindles and K complexes. Photic stimulation produced normal driving. Hyperventilation produced normal and symmetrical buildup. IMPRESSION Only mildly abnormal record due to the presence of intermittent delta activity during wakefulness. There is no evidence of any paroxysmal activity but clinical correlation recommended findings could be suggestive of a postictal state or focal structural lesion.
== END 2024-12-29 10:04 | disposition home or self-care (01) ==
LOC: ANHNEURO 10:04
PROVIDERS: PCP Nurse Practitioner Family; Visit Provider Psychiatry & Neurology Neurology
DX: R56.9 Unspecified convulsions (principal)
CPT/HCPCS: 95816

== ENCOUNTER 2025-01-21 12:08 | Outpatient (CLI) | payer OTHER, SELFPAY ==
--- NOTE | ~2025-01-21 | MR_ITS ---
MR sinus wo con 01/21/2025 13:25 Indication: Epistaxis Procedure: Multisequence/multiplanar MRI examination of the sinuses Comparison: CT dated 12/29/2024 Findings: Paranasal sinuses are unremarkable without significant mucosal thickening. No abnormal fluid. No significant nasal septal deviation. There are bilateral marilynn bullosa. Structures of the posterior fossa are unremarkable. Orbits are symmetric without disconjugate gaze. Flow voids in the visualized intracranial vessels are normal. No ventriculomegaly or midline shift. Impression: 1: No significant sinus disease. Reviewed, dictated and finalized at location I. CIATE COUNSEL Impression: 1: No significant sinus disease.
--- NOTE | ~2025-01-21 | MR_ITS ---
EXAMINATION: MR brain/brain stem wo con DATE: 01/23/2025 14:59 COUTURE DRESSMAKER INDICATION: Headache TECHNIQUE: Magnetic resonance imaging (MRI) of the brain and brainstem was performed without intravenous contrast. Sequences included sagittal and axial T1-weighted SE, axial diffusion-weighted FS SE, axial T2*-weighted GRE, axial T2-weighted FLAIR Propeller, and axial T2-weighted Propeller. Apparent diffusion coefficient (ADC) maps were created. COMPARISON: CT dated 12/29/2024 FINDINGS: The brain volume and ventricular system are within normal limits. The brain parenchymal signal intensity pattern and champagne/white matter is normal and there is no evidence of hemorrhage, space occupying masses or infarctions. The flow signal voids of the major arterial structures about the [place] and within the major dural venous sinuses appear grossly unremarkable and patent. The seventh and eighth cranial nerve complexes are normal. The mid sagittal image demonstrates a normal craniovertebral junction and corpus callosum. The paranasal sinuses are grossly unremarkable. IMPRESSION: 1: Unremarkable MRI of the brain. Reviewed, dictated and finalized at location I. URE DRESSMAKER
--- OUTSIDE RECORDS SUMMARY | 2025-01-21 12:32 | XMS_ITS | Clinical Summary ---
Author Organization [facility] Address [address] [place] [address] Care Team Providers Care Plant Buyer Name Role Phone Stone Galeas MD Primary Care Provider [phone] Source Comments [facility],non-owned Affiliates and Associated Physician Practices is amultiple site organization consisting of ambulatory clinics and hospital sitesin [place], [place], [place] and [place]. This disclosure is being madepursuant to the Care Everywhere program and may not contain all information available regarding this patient. Last updated 17.[facility] Allergies No known active allergies Medications * [...] Comments Blood Pressure 100/70 01/18/2021 2:04 PM SENIOR DESIGNER Pulse 100 01/18/2021 2:04 PM SENIOR DESIGNER Temperature 36.9 C (98.4 F) 08/09/2020 3:44 PM CDT Respiratory Rate 20 01/18/2021 2:04 PM SENIOR DESIGNER Oxygen Saturation 99% 01/18/2021 2:04 PM SENIOR DESIGNER Inhaled Oxygen Concentration - - Weight 64.4 kg (142 lb) 01/18/2021 2:04 PM SENIOR DESIGNER Height 170.2 cm (5' 7) 01/18/2021 2:04 PM SENIOR DESIGNER Body Mass Index 22.24 01/18/2021 2:04 PM SENIOR DESIGNER Plan of Treatment Health Maintenance Due Date Last Done Comments HIV SCREENING 01/10/2016 HEPATITIS C SCREENING 01/05/2019 DEPRESSION SCREENING 02/27/2024 COVID-19 VACCINE ( season) 2024 INFLUENZA VACCINE (#1) 2024 , 11/24/2014, 01/02/2014 DTAP/TDAP/TD VACCINES (5 - Td or Tdap) 01/18/2031 01/18/2021, 09/09/2004, 01/02/2002, Additional history exists ZOSTER VACCINE (1 of 2) 2051 HEPATITIS B VACCINE Completed 09/09/2004, 01/02/2002, 2001 HIB VACCINE Completed 09/09/2004, 08/2001, 2001 PNEUMOCOCCAL VACCINE Completed 09/09/2004, 01/02/2002, 2001 HPV VACCINE Completed 12/29/2015, 03/29/2015 MENINGOCOCCAL GROUPS A/C/Y/W VACCINE Completed 11/20/2018, 11/24/2014 MENINGOCOCCAL (Group B) VACCINE SHARED DECISION-MAKING Aged Out No longer eligible based on patient's age to complete this topic Care Teams Plant Buyer Relationship Specialty Start Date End Date Stone Galeas MD [address] [place] [address] PCP - General 08/03/20
== END 2025-01-21 12:09 | disposition home or self-care (01) ==
PROVIDERS: PCP Nurse Practitioner Family; Visit Provider Nurse Practitioner Family
DX: R51.9 Headache, unspecified (principal); G89.29 Other chronic pain; R04.0 Epistaxis; K40.90 Unilateral inguinal hernia, without obstruction or gangrene, not specified as recurrent; Z00.00 Encounter for general adult medical examination without abnormal findings
CPT/HCPCS: 70540; 70551